=== PATIENT | female | born 1975 | race Caucasian/White ===

== ENCOUNTER 2019-02-25 09:05 | Emergency (ER) | payer MEDICAID ==
[~2019-02-25] VITALS: Ht 162.6 cm; Wt 68.3 kg
[~2019-02-25 09:05] MED LIST: TRAZ50TA66 PO
[2019-02-25 09:07] VITALS: BP 132/88
[2019-02-25] MEDS ORDERED: SODIUM CHLORIDE FLUSH 10ML SYR IVF ONE (09:30)
[2019-02-25] MEDS ORDERED: ONDANSETRON 2MG/ML, 2ML IVPush ONE (09:30)
[2019-02-25] MEDS ORDERED: FAMOTIDINE 20 MG/2 ML IV ONE (09:30)
[2019-02-25 09:56] LABS: BASOPHILS # (AUTO) 0.03 x10^3/uL (0-0.1); BASOPHILS % (AUTO) 0 % (0-1); EOSINOPHILS # (AUTO) 0.04 x10^3/uL (0-0.4); EOSINOPHILS % (AUTO) 1 % (1-7); LYMPHOCYTES # (AUTO) 1.13 x10^3/uL (1-3.4); LYMPHOCYTES % (AUTO) 16 % (22-44); MD NO; MEAN CORPUSCULAR HEMOGLOBIN 30.1 pg (27.0-34.8); MEAN CORPUSCULAR HGB CONC 33.9 g/dL (32.4-35.8); MEAN CORPUSCULAR VOLUME 88.8 fL (80-100); MEAN PLATELET VOLUME 7.3 fL (7.4-10.4); MONOCYTES # (AUTO) 0.32 x10^3/uL (0.2-0.8); MONOCYTES % (AUTO) 5 % (2-9); NEUTROPHILS # (AUTO) 5.66 x10^3/uL (1.8-6.8); NEUTROPHILS % (AUTO) 79 % (42-75); PLATELET COUNT 324 x10^3/uL (130-400); RED BLOOD COUNT 4.35 x10^6/uL (3.82-5.3); RED CELL DISTRIBUTION WIDTH 13.4 % (9.6-15.2)
--- NOTE | 2019-02-25 10:05 | NUR ---
PT HAS DIFFICULT IV ACCESS. COWORKER CALLED FOR ULTRASOUND PLACEMENT. MEDS AWAITING ACCESS.
[2019-02-25 10:08] LABS: ALANINE AMINOTRANSFERASE 17 U/L (12-78); ALBUMIN 3.6 g/dL (3.4-5.0); ANION GAP 12 mmol/L (5-15); CALCIUM 9.2 mg/dL (8.5-10.1); CHLORIDE 102 mmol/L (98-107); CREATININE 0.58 mg/dL (0.55-1.02)
[2019-02-25] MEDS ORDERED: FAMOTIDINE 20 MG/2 ML ONE (10:11)
[2019-02-25] MEDS ORDERED: ONDANSETRON 2MG/ML, 2ML ONE (10:11)
[2019-02-25 10:13] LABS: ALKALINE PHOSPHATASE 130 U/L (45-117); BILIRUBIN,TOTAL 0.9 mg/dL (0.2-1.0); TOTAL PROTEIN 8.7 g/dL (6.4-8.2)
[2019-02-25] MEDS ORDERED: MAALOX/HYOSCYAMINE/LIDOCAINE 45 ML BTL ONE (10:49)
[2019-02-25 10:56] LABS: MICROSCOPIC INDICATED
[2019-02-25] MEDS ORDERED: SODIUM CHLORIDE 0.9% 1,000ML IVBOLUS ONE (11:00)
[2019-02-25] MEDS ORDERED: MAALOX/HYOSCYAMINE/LIDOCAINE 45 ML BTL PO ONE (11:00)
[2019-02-25 11:12] LABS: CULTURE INDICATED? YES
--- NOTE | 2019-02-25 11:31 | NUR ---
pt in bed, iv fluids infusing without issue. States her pain is still a 9/10. erp made aware. pt denies any further needs or concerns at this time, call light in reach.
== END 2019-02-25 12:17 | disposition home or self-care (01) ==
LOC: ED 10:38
DX: K21.0 Gastro-esophageal reflux disease with esophagitis (principal); R11.2 Nausea with vomiting, unspecified; R19.7 Diarrhea, unspecified; L03.115 Cellulitis of right lower limb
CPT/HCPCS: 36415; 80053; 81001; 83690; 84703; 85025; 87086; 93005; 96361; 96374; 96375; 99284; J2405; J3490; J7030